=== PATIENT | female | born 1975 | race Caucasian/White ===

== ENCOUNTER 2016-09-30 19:56 | Emergency (ER) | payer SELFPAY ==
[2016-09-30] MEDS ORDERED: Ondansetron 4 MG/2 ML SDV IVPUSH ONE (20:27)
[2016-09-30] MEDS ORDERED: Sodium Chloride 0.9% 1,000 ML IV ONE (20:27)
[2016-09-30] MEDS ORDERED: Sodium Chloride 0.9% 10 ML Syringe FLUSH PRN (20:27)
[2016-09-30] MEDS ORDERED: Sodium Chloride 0.9% 2.5 ML Syringe FLUSH PRN (20:27)
[2016-09-30] MEDS ORDERED: Ketorolac 30 MG/ML SDV IVPUSH ONE (20:27)
--- NOTE | 2016-09-30 20:30 | EDM.PDOC ---
ED HPI GENERAL MEDICAL PROBLEM - General Chief Complaint: Flank Pain Stated Complaint: LT/ ABDOMINAL PAIN Time Seen by Provider: 09/30/16 20:21 - History of Present Illness INITIAL COMMENTS - FREE TEXT/NARRATIVE: HISTORY AND PHYSICAL: History of present illness: The patient is a 41-year-old female who presents with 2 days of a slight backache on the left flank area it progressed to sharp pain that evening. 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 She has never passed a kidney stone but she has had a urinary tract infection 3 months ago that was treated. She's not had fevers or chills she has had a slight cough which was 2 weeks ago but that has improved. She has no GI history or history except for a total hysterectomy. She's been eating and drinking normally but has had nausea intermittently over last 2 days and had one episode of vomiting here in the ER. She's had no diarrhea and no hematuria but she has had dysuria just for the last few hours. She has no midline back pain and no radiating pain to her legs. No neurosensory changes are appreciated and she states that the back pain she is feeling is different than her usual back pain. Patient took one Aleve earlier today but nothing recently. She says the pain comes in waves of intensity but is always there and a dull fashion. She says it is radiating to her left upper abdomen not her left lower abdomen. Review of systems: As per history of present illness and below otherwise all systems reviewed and negative. Past medical history: As per history of present illness and as reviewed below otherwise noncontributory. Surgical history: As per history of present illness and as reviewed below otherwise noncontributory. Social history: No reported history of drug or alcohol abuse. Family history: As per history of present illness and as reviewed below otherwise noncontributory. Physical exam: General: Well-developed well-nourished female who is nontoxic and speaking clearly and easily in the ED without distress. Vital signs have been noted by me HEENT: Atraumatic, normocephalic, negative for conjunctival pallor or scleral icterus, mucous membranes moist, throat clear, neck supple, nontender, trachea midline. Lungs: Clear to auscultation, breath sounds equal bilaterally, chest nontender. Heart: S1S2, regular, negative for clicks, rubs, or JVD. Abdomen: Soft, nondistended, minimal tenderness in the left upper abdomen on deep palpation without masses rebound or guarding, but the patient states this is not reproduce her pain exactly Negative for masses or hepatosplenomegaly. Negative for costovertebral tenderness. Pelvis: Stable nontender. Genitourinary: Deferred. Rectal: Deferred. Extremities: Atraumatic, negative for cords or calf pain. Neurovascular unremarkable. Neuro: Awake, alert, oriented. Cranial nerves II through XII unremarkable. Cerebellum unremarkable. Motor and sensory unremarkable throughout. Exam nonfocal. Diagnostics: CBC CMP amylase lipase UA urine culture CT scan of the abdomen and pelvis Therapeutics: IV fluids Toradol Zofran Flomax Patient is aware of all testing results and care plan for follow up with urology Flomax Toradol Zofran Ankeny as needed and pushing hydration. Advise her of all reasons to return to the ER. She is also aware of her gallstones and need to followup with that. Patient states she has no pain currently Impression: Left ureterolithiasis Definitive disposition and diagnosis as appropriate pending reevaluation and review of above. left flank Pain Score (Numeric/FACES): 10 - Related Data Allergies Allergy/AdvReac Type Severity Reaction Status Date / Time poppyseed oil Allergy Facial Verified 09/30/16 20:08 Swelling Home Meds: Home Meds . [No Known Home Meds] 09/30/16 [History] Past Medical History HEENT History: Reports: None Cardiovascular History: Reports: None Respiratory History: Reports: None Gastrointestinal History: Reports: None Genitourinary History: Reports: None Musculoskeletal History: Reports: Back pain, chronic Neurological History: Reports: None Psychiatric History: Reports: None Endocrine/Metabolic History: Reports: None - Infectious Disease History Infectious Disease History: Reports: Chicken pox - Past Surgical History Female Surgical History: Reports: Hysterectomy Social & Family History - Family History Family Medical History: Noncontributory - Tobacco Use Smoking Status *Q: Never Smoker - Recreational Drug Use Recreational Drug Use: No ED ROS GENERAL - Review of Systems Review Of Systems: ROS reveals no pertinent complaints other than HPI. ED EXAM, GENERAL - Physical Exam Exam: See Below (See dictation) Course - Vital Signs Last Recorded V/S: Last Vital Signs Temp 36.7 C 09/30/16 20:08 Pulse 95 09/30/16 20:08 Resp 18 09/30/16 20:08 BP 127/84 09/30/16 20:08 Pulse Ox 99 09/30/16 20:08 - Orders/Labs/Meds Orders: Active Orders 24 hr Category Date Time Status Communication Order [RC] STAT Care 09/30/16 22:48 Active Abdomen Pelvis wo Cont [CT] Stat Exams 09/30/16 20:27 Taken CULTURE URINE [RM] Stat Lab 09/30/16 20:51 Received Sodium Chloride 0.9% [Saline Flush] Med 09/30/16 20:27 Active 10 ml FLUSH ASDIRECTED PRN Sodium Chloride 0.9% [Saline Flush] Med 09/30/16 20:27 Active 2.5 ml FLUSH ASDIRECTED PRN Saline Lock Insert [OM.PC] Stat Oth 09/30/16 20:26 Ordered Medication Orders Sodium Chloride (Saline Flush) 10 ml FLUSH ASDIRECTED PRN PRN Reason: Keep Vein Open Sodium Chloride (Saline Flush) 2.5 ml FLUSH ASDIRECTED PRN PRN Reason: Keep Vein Open Labs: Laboratory Tests 09/30/16 09/30/16 09/30/16 Range/Units 20:51 20:51 20:51 WBC 5.25 (4.0-11.0) K/uL RBC 4.47 (4.30-5.90) M/uL Hgb 12.9 (12.0-16.0) g/dL Hct 39.8 (36.0-46.0) % MCV 89.0 (80.0-98.0) fL MCH 28.9 (27.0-32.0) pg MCHC 32.4 (31.0-37.0) g/dL RDW Std Deviation 44.8 (28.0-62.0) fl RDW Coeff of Fredy 14 (11.0-15.0) % Plt Count 210 (150-400) K/uL MPV 10.30 (7.40-12.00) fL Neut % (Auto) 54.2 (48.0-80.0) % Lymph % (Auto) 36.8 (16.0-40.0) % Hunt % (Auto) 7.8 (0.0-15.0) % Eos % (Auto) 0.8 (0.0-7.0) % Baso % (Auto) 0.4 (0.0-1.5) % Neut # 2.9 (1.4-5.7) K/uL Lymph # 1.9 (0.6-2.4) K/uL Hunt # 0.4 (0.0-0.8) K/uL Eos # 0.0 (0.0-0.7) K/uL Baso # 0.0 (0.0-0.1) K/uL Nucleated RBC % 0.0 /100WBC Nucleated RBCs # 0 K/uL Sodium 142 (136-146) mmol/L Potassium 3.9 (3.5-5.1) mmol/L Chloride 106 (98-110) mmol/L Carbon Dioxide 25 (21-31) mmol/L BUN 11 (6.0-23.0) mg/dL Creatinine 0.8 (0.6-1.5) mg/dL Est Cr Clr Drug Dosing 88.18 mL/min Estimated GFR (MDRD) > 60.0 ml/min Glucose 103 (60-110) mg/dL Calcium 9.7 (8.8-10.8) mg/dL Total Bilirubin 0.6 (0.1-1.5) mg/dL AST 16 (5-40) IU/L ALT 11 (8-54) IU/L Alkaline Phosphatase 71 (40-150) Total Protein 7.4 (6.0-8.0) g/dL Albumin 4.6 (3.5-5.0) g/dL Globulin 2.8 (2.0-3.5) g/dL Albumin/Globulin Ratio 1.6 (1.3-2.8) Amylase 45 (10-90) U/L Lipase 10 (7-80) U/L Urine Color YELLOW Urine Appearance SLT CLOUDY Urine pH 6.5 (5.0-8.0) Ur Specific [place] 1.025 (1.001-1.035) Urine Protein NEGATIVE (NEGATIVE) mg/dL Urine Glucose (UA) NEGATIVE (NEGATIVE) mg/dL Urine Ketones NEGATIVE (NEGATIVE) mg/dL Urine Occult Blood NEGATIVE (NEGATIVE) Urine Nitrite NEGATIVE (NEGATIVE) Urine Bilirubin NEGATIVE (NEGATIVE) Urine Urobilinogen 0.2 (<2.0) EU/dL Ur Leukocyte Esterase SMALL (NEGATIVE) Urine RBC 0-2 (0-2/HPF) Urine WBC 5-7 (0-5/HPF) Ur Epithelial Cells FEW (NONE-FEW) Amorphous Sediment RARE (NEGATIVE) Urine Bacteria FEW (NEGATIVE) Urine Mucus LIGHT (NONE-MOD) Meds: Medications Generic Name Dose Route Start Last Admin Trade Name Freq PRN Reason Stop Dose Admin Sodium Chloride 10 ml 09/30/16 20:27 Saline Flush FLUSH ASDIRECTED PRN Keep Vein Open Sodium Chloride 2.5 ml 09/30/16 20:27 Saline Flush FLUSH ASDIRECTED PRN Keep Vein Open Discontinued Medications Generic Name Dose Route Start Last Admin Trade Name Freq PRN Reason Stop Dose Admin Sodium Chloride 1,000 mls @ 999 mls/hr 09/30/16 20:27 09/30/16 20:50 Normal Saline IV 09/30/16 21:27 999 mls/hr STAT ONE Administration Ketorolac Tromethamine 30 mg 09/30/16 20:27 09/30/16 20:53 Toradol IVPUSH 09/30/16 20:28 30 mg ONETIME ONE Administration Ondansetron HCl 4 mg 09/30/16 20:27 09/30/16 20:52 Zofran IVPUSH 09/30/16 20:28 4 mg ONETIME ONE Administration Tamsulosin HCl 0.4 mg 09/30/16 22:48 Flomax PO 09/30/16 22:49 ONETIME ONE Departure - Departure Time of Disposition: 22:53 Disposition: Home, Self-Care 01 Condition: good Clinical Impression: Ureteric colic, Ureterolithiasis Forms: ED Department Discharge Additional Instructions: The following information is given to patients seen in the emergency department who are being discharged to home. This information is to outline your options for follow-up care. We provide all patients seen in our emergency department with a follow-up referral. The need for follow-up, as well as the timing and circumstances, are variable depending upon the specifics of your emergency department visit. If you don't have a primary care physician on staff, we will provide you with a referral. We always advise you to contact your personal physician following an emergency department visit to inform them of the circumstance of the visit and for follow-up with them and/or the need for any referrals to a consulting specialist. The emergency department will also refer you to a specialist when appropriate. This referral assures that you have the opportunity for followup care with a specialist. All of these measure are taken in an effort to provide you with optimal care, which includes your followup. Under all circumstances we always encourage you to contact your private physician who remains a resource for coordinating your care. When calling for followup care, please make the office aware that this follow-up is from your recent emergency room visit. If for any reason you are refused follow-up, please contact the [facility] emergency department at and ask to speak to the emergency department charge nurse. [facility] Primary care- Internal Medicine and Family [facility] [address] [place] [id number] [facility] Specialty Care-Urology [address] [place] [id number] Please push hydration and strain all urine. Please call and follow up with her urologist next week. Please take the Flomax Toradol and Ankeny as directed and return to ER as needed and as discussed. - My Orders Last 24 Hours: My Active Orders 09/30/16 20:26 Saline Lock Insert [OM.PC] Stat 09/30/16 20:27 Abdomen Pelvis wo Cont [CT] Stat Sodium Chloride 0.9% [Saline Flush] 10 ml FLUSH ASDIRECTED PRN Sodium Chloride 0.9% [Saline Flush] 2.5 ml FLUSH ASDIRECTED PRN 09/30/16 20:51 CULTURE URINE [RM] Stat 09/30/16 22:48 Communication Order [RC] STAT - Assessment/Plan Last 24 Hours: My Active Orders 09/30/16 20:26 Saline Lock Insert [OM.PC] Stat 09/30/16 20:27 Abdomen Pelvis wo Cont [CT] Stat Sodium Chloride 0.9% [Saline Flush] 10 ml FLUSH ASDIRECTED PRN Sodium Chloride 0.9% [Saline Flush] 2.5 ml FLUSH ASDIRECTED PRN 09/30/16 20:51 CULTURE URINE [RM] Stat 09/30/16 22:48 Communication Order [RC] STAT
[2016-09-30 21:42] LABS: CHLORIDE,CL 106 mmol/L (98-110); SODIUM,NA 142 mmol/L (136-146)
[2016-09-30] MEDS ORDERED: Tamsulosin 0.4 MG Cap.ER PO ONE (22:48)
[2016-09-30 23:31] VITALS: BP 116/68
--- NOTE | 2016-10-03 13:27 | CT ---
EXAM DATE: 09/30/16 PATIENT'S AGE: 41 Patient: ARMIRO GONZALEZ Facility: [place], [place] Site . Site : 1975 Study: CT Abdomen/Pelvis [id number]/17/2017 9:34:32 PM Ordering Physician: Valentin Warner Final Report: INDICATION: Left-sided back pain. TECHNIQUE: CT abdomen and pelvis without contrast. COMPARISON: None FINDINGS: Lower chest: Unremarkable. Liver: Unremarkable. Spleen: Unremarkable. Pancreas: Unremarkable. Gallbladder and bile ducts: Multiple small gallstones. Kidneys: Punctate obstructing calculus left UVJ with moderate left hydronephrosis. Punctate bilateral nonobstructing calculi. Possible punctate calculi at the right UVJ. No evidence of dilatation of right ureter or right hydronephrosis. . Adrenal glands: Unremarkable. GI tract: Unremarkable. Appendix is not visualized. Vascular structures: Unremarkable. Lymph nodes: Unremarkable. Miscellaneous: Fat containing umbilical hernia. No free air or significant free fluid. Pelvic Organs: Unremarkable. Bones: Mild grade 1 anterolisthesis L5 over S1. IMPRESSION: Unremarkable noncontrast CT of the abdomen and pelvis. No urinary tract stones, hydronephrosis, or other cause for flank pain. Possible punctate calculi at the right UVJ. No evidence of dilatation of the right ureter or right hydronephrosis. Dictated by Wei Rivera MD @ 09/30/2016 10:31:54 PM Dictated by: Wei Rivera MD @ 09/30/2016 22:32:05 ----- ADDENDUM ----- Indication: Left-sided back pain. Sharp anterior left-sided abdominal pain, vomiting and dizziness : Dictated by Wei Rivera MD @ Oct 02 2016 8:15PM (Electronic Signature) Report Signed by Proxy and Original Signed Document filed in the Medical Record. [facility]ITALAndrew
== END 2016-09-30 23:06 | disposition home or self-care (01) ==
LOC: MW.ED 19:56
DX: N20.1 Calculus of ureter (principal); Z90.710 Acquired absence of both cervix and uterus
CPT/HCPCS: 74176; 80053; 81001; 82150; 83690; 85025; 87086; 96361; 96374; 96375; 99284; J1885; J2405; J7040

== ENCOUNTER 2019-04-07 14:28 | Emergency (ER) | payer BC ==
[2019-04-07] MEDS ORDERED: Diphtheria,Pertussis(Acell),Tetanus Vaccine 0.5 ML Syringe IM ONE (14:43)
[2019-04-07] MEDS ORDERED: Bacitracin Oint 1 GM U/D Packet TOP ONE (14:54)
--- NOTE | 2019-04-07 14:57 | EDM.PDOC ---
ED HPI GENERAL MEDICAL PROBLEM - General Chief Complaint: Laceration Stated Complaint: CUT ON RT THUMB Time Seen by Provider: 04/07/19 14:55 Source of Information: Reports: Patient - History of Present Illness INITIAL COMMENTS - FREE TEXT/NARRATIVE: HISTORY AND PHYSICAL: History of present illness: []Patient presents with 1 inch laceration distal right thumb palmar aspect linear simple Patient was reaching into the pusher runner and cut herself on a clean knife Fever nausea vomiting chills sweats Review of systems: As per history of present illness and below otherwise all systems reviewed and negative. Past medical history: As per history of present illness and as reviewed below otherwise noncontributory. Surgical history: As per history of present illness and as reviewed below otherwise noncontributory. Social history: No reported history of drug or alcohol abuse. Family history: As per history of present illness and as reviewed below otherwise noncontributory. Physical exam: HEENT: Atraumatic, normocephalic, pupils reactive, negative for conjunctival pallor or scleral icterus, mucous membranes moist, throat clear, neck supple, nontender, trachea midline. Lungs: Clear to auscultation, breath sounds equal bilaterally, chest nontender. Heart: S1S2, regular, negative for clicks, rubs, or JVD. Abdomen: Soft, nondistended, nontender. Negative for masses or hepatosplenomegaly. Negative for costovertebral tenderness. Pelvis: Stable nontender. Genitourinary: Deferred. Rectal: Deferred. Extremities: Atraumatic, negative for cords or calf pain. Neurovascular unremarkable. Neuro: Awake, alert, oriented. Cranial nerves II through XII unremarkable. Cerebellum unremarkable. Motor and sensory unremarkable throughout. Exam nonfocal. Diagnostics: [] Therapeutics: lidocaine Tetanus status updated Upper 3 sutures 4-0 Prolene interrupted ] heard wound care instructions Sutures out in 10 days Impression: [ 1 inch linear laceration, simple ] Definitive disposition and diagnosis as appropriate pending reevaluation and review of above. right thumb Pain Score (Numeric/FACES): 7 - Related Data Allergies Allergy/AdvReac Type Severity Reaction Status Date / Time poppyseed oil Allergy Facial Verified 09/30/16 20:08 Swelling narotics Allergy Vomiting Uncoded 04/07/19 14:37 Home Meds: Home Meds . [No Known Home Meds] 09/30/16 [History] Past Medical History HEENT History: Reports: None Cardiovascular History: Reports: None Respiratory History: Reports: None Gastrointestinal History: Reports: None Genitourinary History: Reports: None Musculoskeletal History: Reports: Back Pain, Chronic Neurological History: Reports: None Psychiatric History: Reports: None Endocrine/Metabolic History: Reports: None - Infectious Disease History Infectious Disease History: Reports: None - Past Surgical History Female Surgical History: Reports: Section, Hysterectomy Social & Family History - Family History Family Medical History: Noncontributory - Tobacco Use Smoking Status *Q: Never Smoker - Recreational Drug Use Recreational Drug Use: No ED ROS GENERAL - Review of Systems Review Of Systems: See Below ED EXAM, SKIN/RASH Exam: See Below Course - Vital Signs Last Recorded V/S: Last Vital Signs Temp 96.3 F 04/07/19 14:37 Pulse 77 04/07/19 14:37 Resp 18 04/07/19 14:37 BP 138/78 04/07/19 14:37 Pulse Ox 100 04/07/19 14:37 - Orders/Labs/Meds Orders: Active Orders 24 hr Category Date Time Status Vaccines to be Administered [RC] PER UNIT ROUTINE Care 04/07/19 14:43 Active Bacitracin [Bacitracin Oint 1 GM] Med 04/07/19 14:54 Once 1 dose TOP ONETIME ONE Medication Orders Bacitracin (Bacitracin Oint 1 Gm) 1 dose TOP ONETIME ONE Stop: 04/07/19 14:55 Meds: Medications Generic Name Dose Route Start Last Admin Trade Name Freq PRN Reason Stop Dose Admin Bacitracin 1 dose 04/07/19 14:54 Bacitracin Oint 1 Gm TOP 04/07/19 14:55 ONETIME ONE Discontinued Medications Generic Name Dose Route Start Last Admin Trade Name Freq PRN Reason Stop Dose Admin Diphtheria/Tetanus/Acell Pertussis 0.5 ml 04/07/19 14:43 Adacel IM 04/07/19 14:44 .ONCE ONE Lidocaine HCl 5 ml 04/07/19 14:43 Xylocaine-Mpf 1% INJECT 04/07/19 14:44 ONETIME ONE Departure - Departure Time of Disposition: 14:56 Disposition: Home, Self-Care 01 Condition: Good Clinical Impression: Laceration - Discharge Information Referrals: PCP,Unknown [Primary Care Provider] - Additional Instructions: Standard wound care instructions Keep wound clean and dry for 48 hours Return as symptoms persist or worsen Sutures out in [address] [facility] - Primary Care [address] [place] [id number] The following information is given to patients seen in the emergency department who are being discharged to home. This information is to outline your options for follow-up care. We provide all patients seen in our emergency department with a follow-up referral. The need for follow-up, as well as the timing and circumstances, are variable depending upon the specifics of your emergency department visit. If you don't have a primary care physician on staff, we will provide you with a referral. We always advise you to contact your personal physician following an emergency department visit to inform them of the circumstance of the visit and for follow-up with them and/or the need for any referrals to a consulting specialist. The emergency department will also refer you to a specialist when appropriate. This referral assures that you have the opportunity for follow-up care with a specialist. All of these measure are taken in an effort to provide you with optimal care, which includes your follow-up. Under all circumstances we always encourage you to contact your private physician who remains a resource for coordinating your care. When calling for follow-up care, please make the office aware that this follow-up is from your recent emergency room visit. If for any reason you are refused follow-up, please contact the [facility] emergency department at and asked to speak to the emergency department charge nurse. - My Orders Last 24 Hours: My Active Orders 04/07/19 14:43 Vaccines to be Administered [RC] PER UNIT ROUTINE 04/07/19 14:54 Bacitracin [Bacitracin Oint 1 GM] 1 dose TOP ONETIME ONE - Assessment/Plan Last 24 Hours: My Active Orders 04/07/19 14:43 Vaccines to be Administered [RC] PER UNIT ROUTINE 04/07/19 14:54 Bacitracin [Bacitracin Oint 1 GM] 1 dose TOP ONETIME ONE
[2019-04-07 15:17] VITALS: BP 118/79; PULSE 65
== END 2019-04-07 15:17 | disposition home or self-care (01) ==
LOC: MW.ED 14:28
DX: S61.011A Laceration without foreign body of right thumb without damage to nail, initial encounter (principal); Z23 Encounter for immunization; Z91.018 Allergy to other foods; Z88.5 Allergy status to narcotic agent; W26.0XXA Contact with knife, initial encounter
CPT/HCPCS: 12001; 90471; 90715; 99282; J2001